=== PATIENT | female | born 1955 | race Native Hawaiian/Other Pacific Islander ===

== ENCOUNTER 2021-07-20 11:33 | Outpatient (CLI) | payer OTHER | END 2021-07-20 22:01 | disposition home or self-care (01) | LOC: RAD 11:33 | PROVIDERS: ATTEND Physician Assistant | DX: M25.512 Pain in left shoulder (principal) ==

== ENCOUNTER 2021-07-22 09:56 | Emergency (ER) | payer OTHER ==
[~2021-07-22] VITALS: Ht 167.6 cm; Wt 68.0 kg
[2021-07-22 10:11] LABS: PLATELET COUNT 545 K/uL (152-353)
[2021-07-22 10:21] VITALS: TEMP 98.7
[2021-07-22 10:23] LABS: POTASSIUM 2.6 mmol/L (3.6-5.2); SODIUM 141 mmol/L (136-145)
[2021-07-22 10:39] LABS: PARTIAL THROMBOPLASTIN TIME 23.2 SECONDS (24.5-33.6)
[2021-07-22 12:02] VITALS: BP 157/87
== END 2021-07-22 12:49 | disposition short-term general hospital (02) ==
LOC: ED 09:56
PROVIDERS: Hospitalist
DX: I63.89 Other cerebral infarction (principal); Z11.52 Encounter for screening for COVID-19
CPT/HCPCS: 80053; 80307; 80320; 81000; 82550; 82553; 83880; 84484; 85027; 85610; 85730; 87635; 93005; 96360; 96365; 96372; 99285; J1650; U0003